=== PATIENT | female | born 1980 | race African-American/Black ===

== ENCOUNTER 2022-07-11 09:56 | Emergency (ER) | payer OTHER ==
[~2022-07-11] VITALS: Ht 157.5 cm; Wt 85.4 kg
[~2022-07-11 09:56] MED LIST: PRENCAP15
[2022-07-11] MEDS ORDERED: METOCLOPRAMIDE HCL 5MG/ml INJ 2ml VIAL IV ONE (10:45)
[2022-07-11] MEDS ORDERED: HYDROcodone-ACET 5/325MG TAB PO ONE (10:45)
[2022-07-11] MEDS ORDERED: diphenhdrAMINE HCL 50 MG/1 ML VL IV ONE (10:45)
[2022-07-11] MEDS ORDERED: LACTATED RINGER'S 1,000 ML IV ONE (10:45)
[2022-07-11] MEDS ORDERED: MAGNESIUM SULFATE 1GM/100ML 100 ML IV ONE (10:45)
[2022-07-11] MEDS ORDERED: DexAMETHasone SOD PHOS 10MG/1ML VIAL INJ IV ONE (10:45)
[2022-07-11 12:28] LABS: Basophils # (auto) 0 10 ^3/uL (0-0.2); Basophils % (auto) 0.2 % (0.0-2.0); Eosinophils # (auto) 0 10 ^3/uL (0-0.8); Eosinophils % (auto) 0.4 % (0.0-7.0); Hematocrit 41.4 % (36.0-46.0); Hemoglobin 13.7 g/dL (12.2-16.2); Lymphocytes # (auto) 1.2 10 ^3/uL (0.4-5.4); Mean Corpuscular Hemoglobin 30.9 pg (28.0-32.0); Mean Corpuscular Volume 93.7 fL (80.0-100.0); Monocytes # (auto) 0.3 10 ^3/uL (0-1.3); Monocytes % (auto) 4.7 % (0.0-12.0); Neutrophils # (auto) 4.2 10 ^3/uL (1.6-8.6); Neutrophils % (auto) 73.7 % (37.0-80.0); Nucleated Red Blood Cells % 0.1 %; Red Blood Cells 4.42 10^6/uL (4.0-5.20); Red Cell Distribution Width 13.3 % (11.8-14.3); White Blood Cell 5.7 10^3/uL (4.4-10.8)
[2022-07-11 12:34] LABS: Albumin 3.7 g/dL (3.4-5.0); Calcium 8.8 mg/dL (8.5-10.1); Potassium 3.7 mmol/L (3.5-5.1)
[2022-07-11 12:37] LABS: Bilirubin, Total 0.5 mg/dL (0.2-1.0); Total Protein 7.7 g/dL (6.4-8.2)
[2022-07-11 13:52] VITALS: BP 132/92
== END 2022-07-11 13:58 | disposition home or self-care (01) ==
LOC: ER 09:56
DX: R51.9 Headache, unspecified (principal); H11.32 Conjunctival hemorrhage, left eye; I10 Essential (primary) hypertension
CPT/HCPCS: 36415; 70450; 80053; 81025; 82962; 85025; 93005; 96361; 96374; 96375; 99285; J1100; J2765